=== PATIENT | female | born 1955 | race Caucasian/White ===

== ENCOUNTER 2017-03-03 09:51 | Day surgery (SDC) | payer OTHER ==
[~2017-03-03] VITALS: Ht 165.1 cm; Wt 104.3 kg
[~2017-03-03 09:51] MED LIST: ACCUPRIL40 MG PO; LASIX20 MG PO; NEURONTIN100 MG PO; NOVOLOG PE100 UNITS/ SC; PROTONIX40 MG PO; TOUJEO SOL300 UNIT/1 SC; ULTRAM50 MG PO
[2017-03-03 10:18] LABS: POINT-OF-CARE METER ID UU14174212
[2017-03-03 10:42] LABS: ANION GAP 6 MEQ/L (2-14); CHLORIDE 103 MEQ/L (99-109); SAMPLE HEMOLYSIS CHECK 0; SAMPLE ICTERIC CHECK 0; SAMPLE LIPEMIA CHECK 0; SODIUM 138 MEQ/L (136-147)
[2017-03-03 10:47] LABS: GFR ESTIMATE (CALCULATED) > 59 mL/min/; GLUCOSE 241 mg/dL (70-99); UREA NITROGEN (BUN) 28 mg/dL (9-23)
[2017-03-07] MEDS ORDERED: MOBIC7.5 MG PO (08:26)
[2017-03-07] MEDS ORDERED: ENDOCET 5-3251 EACH PO (08:28)
== END 2017-03-03 11:35 | disposition home or self-care (01) ==
LOC: PAIN 09:51 → SDC 10:15 → PAIN 10:15
PROVIDERS: Anesthesiology; Anesthesiology Pain Medicine
DX: M47.816 Spondylosis without myelopathy or radiculopathy, lumbar region (principal); M54.5 Low back pain; G89.29 Other chronic pain; M48.061 Spinal stenosis, lumbar region without neurogenic claudication; M96.1 Postlaminectomy syndrome, not elsewhere classified; E11.9 Type 2 diabetes mellitus without complications; Z79.4 Long term (current) use of insulin; Z87.891 Personal history of nicotine dependence
CPT/HCPCS: 80048; 82948; 93005; J1030; J2250; J3010; S0020